=== PATIENT | female | born 1970 | race Asian ===

== ENCOUNTER → 2018-03-26 | Outpatient (CLI) | payer OTHER | LOC: FIMAGING 09:24 | PROVIDERS: ATTEND Family Medicine | DX: Z13.89 Encounter for screening for other disorder (principal); Z98.890 Other specified postprocedural states ==

== ENCOUNTER → 2018-04-24 | Outpatient (CLI) | payer OTHER | LOC: FIMAGING 13:43 | PROVIDERS: ATTEND Family Medicine | DX: Z12.31 Encounter for screening mammogram for malignant neoplasm of breast (principal) ==

== ENCOUNTER 2018-05-18 02:17 | Emergency (ER) | payer OTHER ==
[2018-05-18] MEDS ORDERED: NS 500 ML IV ONE (03:24)
[2018-05-18] MEDS ORDERED: KETOROLAC 15 MG/1 ML SDV IVP ONE (03:24)
[2018-05-18] MEDS ORDERED: ONDANSETRON 4 MG/2 ML VIAL IVP ONE (03:24)
--- NOTE | 2018-05-18 03:34 | EDPHY ---
H & P Stated Complaint: HTN 179/125,NAUSEA, HERNANDEZ, SOB, STARTED MEDS 2 WK AGO, HAS BEEN OFF OF IT Time Seen by Provider: 05/18/18 03:02 HPI/ROS: HPI The patient presents with elevated blood pressure readings which she 1st noticed tonight at about midnight. Her blood pressure was in the 160s over 120s where is normally it is in the 130s to 140s over 90s to 100. At 1:15 a.m. she took a single dose of her metoprolol 25 mg though this did not improve her blood pressure so she came into the emergency department. She was diagnosed with hypertension about 2-3 weeks ago and started on metoprolol. She is new to altitude in her primary care doctor thought that the elevated blood pressures may be related to altitude so [place] blood pressure, it was normal, and she did not take any metoprolol. She returned about a week ago and has taken her metoprolol only as needed when her blood pressure is elevated. This only occurred once over the last 1 week so she is not consistently taking metoprolol. Tonight at about 6:00 p.m. She had a left frontal headache which started slowly and got progressively worse. It improved for a few hours after drinking a cup of coffee, however at returned and progressed. She has nausea though this is fairly usual for her. She has not had any vomiting, confusion, behavioral change, vision change. She does not have any chest pain or abdominal pain.. REVIEW OF SYSTEMS 10 systems were reviewed and negative with the exception of the elements mentioned in the history of present illness. PMHx: Newly diagnosed hypertension on metoprolol Soc Hx: Here with her partner PHYSICAL General Appearance: Alert, no distress Eyes: Pupils equal and round no pallor or injection ENT, Mouth: Mucous membranes moist Respiratory: There are no retractions, lungs are clear to auscultation Cardiovascular: Regular rate and rhythm Gastrointestinal: Abdomen is soft and non-tender, no masses, bowel sounds normal Neurological: A&O, moves all extremities Skin: Warm and dry, no rashes Musculoskeletal: Neck is supple non tender Extremities: symmetrical, full range of motion Psychiatric: Patient is oriented X 3, there is no agitation Source: Patient Exam Limitations: No limitations - Personal History LMP (Females 10-55): 1-7 Days Ago Current Tetanus/Diphtheria Vaccine: Yes - Medical/Surgical History Hx Asthma: No Hx Chronic Respiratory Disease: No Hx Diabetes: No Hx Cardiac Disease: No Hx Renal Disease: No Hx Cirrhosis: No Hx Alcoholism: No Hx HIV/AIDS: No Hx Splenectomy or Spleen Trauma: No Other PMH: HTN, PMDD, SLEEP APNEA - Social History Smoking Status: Former smoker Constitutional: Initial Vital Signs Temperature (C) 36.7 C 05/18/18 02:21 Heart Rate 90 05/18/18 02:21 Respiratory Rate 22 H 05/18/18 02:21 Blood Pressure 173/125 H 05/18/18 02:21 O2 Sat (%) 98 05/18/18 02:21 O2 Delivery Mode Room Air Allergies/Adverse Reactions: ciprofloxacin [From Cipro] Allergy (Verified 05/18/18 02:20) Home Medications: Medication Instructions Recorded Melatonin 05/18/18 Metoprolol Tartrate 05/18/18 Vitamin D3 05/18/18 Medical Decision Making Differential Diagnosis: 47-year-old female, newly diagnosed with hypertension several weeks ago taking metoprolol only p.r.n., presents with elevated blood pressure readings and headache. Patient has had the headache since about 6:00 p.m. Tonight, started slowly, has gotten progressively worse, transiently improved with caffeine. She checked her blood pressure around midnight and blood pressure was elevated. It did not improved with metoprolol. She called the advice nurse and was instructed to come into the ER. I am not concerned about hypertensive encephalopathy, CVA, aortic dissection or any other hypertensive emergency. I explained to her that hypertension alone should not cause headaches. I explained that headaches often cause pain leading to elevated blood pressure readings. I will treat her headache here with IV fluids and Toradol and then recheck her. Patient improved significantly after IV fluids. Blood pressure improved. She felt well enough to go home. I have advised her to follow up with her primary care doctor. - Data Points Medications Given: Discontinued Medications Sodium Chloride (Ns) 500 mls @ 1,000 mls/hr IV EDNOW ONE PRN Reason: Protocol Stop: 05/18/18 03:53 Last Admin: 05/18/18 03:34 Dose: 500 mls Ketorolac Tromethamine (Toradol) 15 mg IVP EDNOW ONE Stop: 05/18/18 03:25 Last Admin: 05/18/18 03:35 Dose: 15 mg Ondansetron HCl (Zofran) 4 mg IVP EDNOW ONE Stop: 05/18/18 03:25 Last Admin: 05/18/18 03:35 Dose: 4 mg Ondansetron HCl (Zofran Odt 4 Mg Prepack#2) 1 btl TAKEHOME EDNOW ONE Stop: 05/18/18 04:37 Last Admin: 05/18/18 04:42 Dose: 1 btl Departure - Departure Disposition: Home, Routine, Self-Care Clinical Impression: HTN (hypertension) Qualifiers: Hypertension type: unspecified Qualified Code(s): I10 - Essential (primary) hypertension Headache Qualifiers: Headache type: unspecified Headache chronicity pattern: acute headache Intractability: not intractable Qualified Code(s): R51 - Headache Condition: Good Instructions: Ondansetron (By mouth), Acute Headache (DC), Chronic Hypertension (ED) Additional Instructions: Please follow-up with your primary care doctor with a phone call in the next few days. Referrals: Nia Chan MD [Primary Care Provider] - As per Instructions
[2018-05-18] MEDS ORDERED: ONDANSETRON 4MG PREPACK#2 BTL TAKEHOME ONE (04:36)
[2018-05-18 04:49] VITALS: BP 126/98
== END 2018-05-18 04:53 | disposition home or self-care (01) ==
DX: R51 Headache (principal); I10 Essential (primary) hypertension; Z79.899 Other long term (current) drug therapy
CPT/HCPCS: 96374; J1885; J2405

== ENCOUNTER 2018-10-12 19:31 | Emergency (ER) | payer OTHER ==
[2018-10-12] MEDS ORDERED: IBUPROFEN 200 MG TAB PO ONE (19:56)
--- NOTE | 2018-10-12 19:56 | EDPHY ---
HPI/HX/ROS/PE/MDM Narrative: CHIEF COMPLAINT: Fall, chest wall injury HPI: The patient is a 47-year-old female with history of hypertension. Prior to arrival, the patient was walking downstairs when her sock got caught on a nail causing her to twist and strike the anterior portion of her chest on the landing. She denies loss of consciousness. She complains of pain to the center of her sternum. She denies shortness of breath, abdominal pain, injury to other part of her body. She called the nurse line advised her to go to the emergency department for x-ray REVIEW OF SYSTEMS: Aside from elements discussed in the HPI, a comprehensive 10-point review of systems was reviewed and is negative. PMH: Includes hypertension. Not on anticoagulants. SOCIAL HISTORY: Denies alcohol or drug abuse. PHYSICAL EXAM: General:Patient is alert, in no acute distress. ENT:Eyes are normal to inspection. ENT inspection normal. Neck: Normal inspection. Full range of motion. Respiratory:No respiratory distress. Breath sounds normal bilaterally. Tenderness to palpation which reproduces chest pain is present in the center of the sternum. No crepitus or ecchymosis noted. Cardiovascular: Regular rate and rhythm. Strong peripheral pulses. Normal cap refill. Abdomen:The abdomen is nontender to palpation including to the right upper quadrant and epigastrium to deep palpation. Extremities: Normal appearance. Full range of motion. Neuro: Oriented x3. Normal motor function. Normal sensory function. ED Course: On re-evaluation, patient states pain in sternum is still present but tolerable. Patient in no respiratory distress and able to laugh without apparent discomfort. I think this likely represents a chest wall contusion. I do not think CT imaging is indicated at this time given negative XR and reassuring exam, but have discussed strict return precautions with the patient and need for follow-up if symptoms worsen or change. - Data Points Imaging Results: Imaging Impressions Chest X-Ray 10/12/18 19:53 Impression: No acute findings in the chest. Medications Given: Discontinued Medications Ibuprofen (Motrin) 400 mg PO EDNOW ONE Stop: 10/12/18 19:57 Last Admin: 10/12/18 20:17 Dose: 400 mg General Time Seen by Provider: 10/12/18 19:48 Initial Vital Signs: Initial Vital Signs Temperature (C) 36.5 C 10/12/18 19:40 Heart Rate 73 10/12/18 19:40 Respiratory Rate 16 10/12/18 19:40 Blood Pressure 142/99 H 10/12/18 19:40 O2 Sat (%) 100 10/12/18 19:40 O2 Delivery Mode Room Air Allergies/Adverse Reactions: ciprofloxacin [From Cipro] Allergy (Verified 05/18/18 02:20) Home Medications: Medication Instructions Recorded Fluticasone Nasal [Flonase Nasal 10/12/18 [place]] Departure - Departure Disposition: Home, Routine, Self-Care Clinical Impression: Chest wall contusion Condition: Good Instructions: Rib Contusion (ED) Additional Instructions: Follow-up with your primary doctor within 72 hours. Return to the Emergency Department for fever, chest pain, shortness of breath, increasing pain or other worsening of condition. Referrals: Nia Chan MD [Primary Care Provider] - As per Instructions
[2018-10-12] MEDS ORDERED: OXYCODONE/APAP 5/325MG PREPACK#4 BTL TAKEHOME ONE (20:35)
[2018-10-12 20:51] VITALS: BP 140/95
== END 2018-10-12 20:51 | disposition home or self-care (01) ==
DX: S20.219A Contusion of unspecified front wall of thorax, initial encounter (principal); I10 Essential (primary) hypertension; X50.1XXA Overexertion from prolonged static or awkward postures, initial encounter; Y93.01 Activity, walking, marching and hiking